=== PATIENT | female | born 1970 | race Caucasian/White ===

== ENCOUNTER 2017-03-16 16:29 | Emergency (ER) | payer OTHER ==
[~2017-03-16] VITALS: Ht 165.1 cm; Wt 85.9 kg
[2017-03-16 16:55] VITALS: BP 119/75; PULSE 80; RESP 16; O2SAT 100
--- NOTE | 2017-03-16 17:13 | ED.REPORT ---
HPI-Extremity Problem Lower Date of Service Mar 16, 2017 ED Provider: Miguel Estrada MD The patient is a 46 year old female who presents to the emergency department complaining of left leg pain that began at 0700 this morning. The patient was stepping over a dog gate when she got her right leg over her left leg got caught and she felt like she hyperextended her left leg. She complains of pain from her left hip down to her left ankle. She did not fall to the ground. She did not hit her head and denies any other injuries. She is able to walk but this exacerbates her pain. She has not taken anything for pain. Nursing Notes Stated Complaint: HURT LEG Chief Complaint: Extremity Trauma Nursing Notes Reviewed: Yes Allergies: Coded Allergies: NSAIDS (Non-Steroidal Anti-Inflamma (Verified Adverse Reaction, Intermediate, GIB, 03/16/17) Scheduled PRN Hydrocodone-Acetaminophen 5-325 mg (Hydrocodone-Acetaminophen 5-325 mg) 1 Each Tablet 1 TABLET PO Q4H PRN PRN For Pain General Time Seen by MD: 17:08 Chief Complaint Leg injury left Hx Obtained From: Patient Arrived By: Walk-in Onset Occurred: Just prior to arrival Symptom Duration: Since onset Location: : Leg left Quality: Painful Severity: Current: Moderate Severity: Maximum: Moderate Pertinent Negative: Pt denies other symptoms Exacerbated by: Movement Relieved by: Immobilization, Rest Recent Healthcare: No recent doctor visit, No recent hospitalization Similar Sx Previous: No Past Medical History Family History Noncontributory Social History Other Social History: Good social support, Local resident Ambulatory Status Independent Review of Systems Musculoskeletal: Reports: Extremity pain, Joint pain, Denies: Neck pain Neurologic: Denies: Change LOC, Headache, Syncope Complete sys rev & neg: except as marked. Physical Exam Initial Vital Signs Vital Signs (First) Date Time Temp Pulse Resp B/P Pulse Ox O2 Delivery O2 Flow Rate FiO2 03/16/17 16:55 36.7 80 16 119/75 100 Room Air Initial VS: Reviewed Respiratory: Breath sounds normal, Clear to auscultation, No respiratory distress Cardiovascular: Regular rate & rhythm, Heart sounds normal, Intact distal pulses Abdomen / GI: Soft, Non-tender, No guarding, No rebound, No distention Upper Extremities: Vascular intact, Neuro intact, No swelling, No tenderness Skin: Warm, Dry, No cyanosis Neurologic: Alert, Oriented, Nonfocal Psychiatric: Mood/affect normal, Behavior normal, Normal thought content Lower Extremity / Pelvis / MS: Neurologic intact, Vascular intact Full active and passive range of motion of her RLE. LLE is atraumatic in appearance. She is complainig of pain starting at left buttock radiating down her leg. Her pain is worse with active flexion and extension of the left hip. No bony deformities. No effusion of the knee. Tender diffusely about the left buttock and posterior thigh. Ankle / Foot: Neurologic intact, Vascular intact General/Constitutional: Awake, Alert, Cooperative Head / Eyes: Atraumatic, Normocephalic, PERRL, EOMI ENT: Atraumatic, Airway patent, Mucous membranes moist Neck: Full range of motion, No swelling, Non-tender, No midline vertebral tend Re-Eval/Medical Decision Med Decision/Clinical Course The patient is a 46 year old female who presents to the emergency department complaining of left leg pain that began at 0700 this morning. The patient was stepping over a dog gate when she got her right leg over her left leg got caught and she felt like she hyperextended her left leg. She complains of pain from her left hip down to her left ankle. She did not fall to the ground. She did not hit her head and denies any other injuries. She is able to walk but this exacerbates her pain. She has not taken anything for pain. Here in the emergency department she is afebrile, hemodynamically stable and in apparent distress. No evidence of neurovascular injury or deficit. Distal extremity warm, well-perfused with good sensation. She is able to ambulate and weight- bear unaffected extremity. No clinical evidence suggestive of fracture or dislocation. Overall presentation most consistent with muscle strain. Treated with Flexeril. Advised ice packs, stretching. Follow-up with primary care physician. Prior to discharge follow-up and return precautions were reviewed in detail with the patient who verbalized understanding and agreement with the plan. The patient was discharged in stable condition. Source of Hx: Old records Re-Evaluation/Progress : Time of Eval: 18:21 Re-Evaluation/Progress Note: Discussed exam findings and plan for discharge. All questions were addressed. Counseled Regarding: Diagnosis, Need for follow-up, When/why to return to ED Discharge & Departure Impression: Primary Impression: Muscle strain Additional Impression: Left leg pain Disposition: Home Discharge Condition All VS Reviewed: Yes Condition: Stable Additional Instructions: Thank you for seeking care at the emergency room. Our primary goal today in the ED was to evaluate you for any life-threatening conditions. Your evaluation was reassuring. You will be discharged with a prescription for Vicodin. I recommend taking the this medication at night to help you sleep. You should not drink alcohol, drive , or work while taking the Vicodin. You can take Tylenol as well. Do not exceed 2000 mg per day. Make sure to take into account the amount of Tylenol that is in the Vicodin. You can apply ice to the painful areas if this helps. You should follow-up with your primary doctor in the next week if your symptoms are not improving. You should return to the ED immediately if you develop increased pain, numbness , weakness or any other concerning signs or symptoms. Thank you for letting us partake in your care today. Narcotic Pain Medicine You have been prescribed a narcotic for pain relief. These drugs are usually combined with acetaminophen (Tylenol#3, Percocet, Darvocet, Anexsia, Vicodin) or aspirin (Empirin#3, Percodan, Synalogs-DC) for increased effect. Narcotics act on the central nervous system to reduce pain; they also impair mental alertness and physical abilities. We advise you not to drink alcohol, drive a car, or operate dangerous equipment when you are taking these drugs. You can lessen stomach irritation from your medicine by taking it with meals or a full glass of water. Common side effects of narcotics are: Nausea and vomiting, heartburn, constipation, dizziness, sleepiness, and mood changes. If you have bothersome side effects or symptoms of an allergic reaction (itching, hives, rash), stop taking your medicine and call your doctor or the emergency room right away. Please keep your narcotic medicine well out of the reach of children. Referrals: Lawanda Mcmahan ARNP (PCP) Scribe Attestation Portions of this note were transcribed by Nydia Resendez. I, Dr. Estrada personally performed the history, physical exam and medical decision-making; I reviewed and confirmed the accuracy of the information in the transcribed note. Signed by: Margarita Fairbanks, 03/16/2017 at 1845. copies to: Lawanda Mcmahan,Miguel Hebert MD Mar 16, 2017 17:13 Nydia Resendez Mar 16, 2017 17:15
[2017-03-16] MEDS ORDERED: HYDR-4003 PO (18:24)
[2017-03-16] MEDS ORDERED: HYDROcodone-APAP 5-325 mg Tablet PO ONE (18:25)
[2017-03-16 18:34] VITALS: BP 122/74; PULSE 88; RESP 16; O2SAT 99
== END 2017-03-16 18:35 | disposition home or self-care (01) ==
LOC: SED 16:29
DX: S86.912A Strain of unspecified muscle(s) and tendon(s) at lower leg level, left leg, initial encounter (principal); X50.9XXA Other and unspecified overexertion or strenuous movements or postures, initial encounter; Y93.89 Activity, other specified; Y92.89 Other specified places as the place of occurrence of the external cause; Y99.8 Other external cause status; Z88.8 Allergy status to other drugs, medicaments and biological substances